=== PATIENT | male | born 1990 | race Two or more races ===

== ENCOUNTER 2019-10-05 17:07 | Emergency (ER) | payer SELFPAY ==
[~2019-10-05] VITALS: Ht 175.3 cm; Wt 73.0 kg
[2019-10-05 17:23] VITALS: BP 119/77
[2019-10-05] MEDS ORDERED: HYDROcodone-ACET 10/325MG TAB PO ONE (18:45)
== END 2019-10-05 19:48 | disposition home or self-care (01) ==
LOC: ER 17:07
DX: S42.001A Fracture of unspecified part of right clavicle, initial encounter for closed fracture (principal); X58.XXXA Exposure to other specified factors, initial encounter; Y93.89 Activity, other specified; Y92.89 Other specified places as the place of occurrence of the external cause; Y99.8 Other external cause status
CPT/HCPCS: 70450; 73030

== ENCOUNTER 2022-08-29 19:35 | Emergency (ER) | payer SELFPAY ==
[~2022-08-29] VITALS: Ht 177.8 cm; Wt 155.0 kg
[2022-08-29] MEDS ORDERED: CYCL-611 PO (21:56)
[2022-08-29] MEDS ORDERED: IBU600T PO (21:56)
[2022-08-29] MEDS ORDERED: HYDROcodone-ACET 5/325MG TAB PO ONE (22:00)
[2022-08-29] MEDS ORDERED: DexAMETHasone SOD PHOS 10MG/1ML VIAL INJ IM ONE (22:00)
[2022-08-29 23:23] VITALS: BP 141/101
== END 2022-08-29 23:39 | disposition home or self-care (01) ==
LOC: ER 19:35
DX: S42.001A Fracture of unspecified part of right clavicle, initial encounter for closed fracture (principal); S13.9XXA Sprain of joints and ligaments of unspecified parts of neck, initial encounter; S43.401A Unspecified sprain of right shoulder joint, initial encounter; S00.03XA Contusion of scalp, initial encounter; S20.20XA Contusion of thorax, unspecified, initial encounter; M19.011 Primary osteoarthritis, right shoulder; W01.0XXA Fall on same level from slipping, tripping and stumbling without subsequent striking against object, initial encounter; Y93.89 Activity, other specified; Y92.89 Other specified places as the place of occurrence of the external cause; Y99.8 Other external cause status
CPT/HCPCS: 70450; 71250; 72125; 73030; 96372; 99285; J1100